=== PATIENT | female | born 1960 | race Caucasian/White ===

== ENCOUNTER 2016-09-04 09:56 | Outpatient (CLI) | payer BC ==
--- NOTE | 2016-09-04 15:03 | DIAGNOSTIC IMAGING REPORT ---
PROCEDURE: MG BILATERAL SCREENING W/CAD INDICATION: Screening, remote family history of breast cancer TECHNIQUE: Standard CC and MLO views bilaterally. Computer aided detection was used. COMPARISON: 05/16/2010, 05/03/2009, 11/11/2007 FINDINGS: Moderately dense fibroglandular tissue is present bilaterally. No developing densities, areas of architectural distortion, or suspicious microcalcifications. IMPRESSION: 1. Stable mammograms without radiographic evidence of malignancy. RESULT CODE: 1- Negative. A. A negative report should not delay biopsy if a dominant or clinically suspicious mass is present. 10-15% of cancers are not identified by x-ray. B. A negative report may reinforce clinical impression. C. Adenosis and dense breasts may obscure an underlying neoplasm. D. False positive reports average 6-10%. E.. A yearly screening mammogram is recommended. A reminder letter will be scheduled.
--- NOTE | 2016-09-04 16:16 | DIAGNOSTIC IMAGING REPORT ---
PROCEDURE: US COMPLETE PELVIC W/TRANSVAG INDICATION: PELVIC PAIN TECHNIQUE: Transabdominal and endovaginal zelaya scale and color Doppler sonographic images of the female pelvis were obtained. COMPARISON: None. FINDINGS: TRANSABDOMINAL SCANS: The uterus is of normal size 6.4 x 3.9 x 4.90 cm Kidneys are normal. TRANSVAGINAL SCANS: The uterus is anteverted. Myometrium is normal. The endometrium contains a solid mass that is vascular. This measures 21 mm. Right ovary is normal measuring 2.1 x 0.8 x 1.9 cm The left ovary is normal measuring 1.8 x 1.2 x 2.0 cm it was a difficult to show blood flow in the ovaries. IMPRESSION: 1. Endometrial mass measuring 21 mm.
== END 2016-09-04 23:00 ==
LOC: US SRH 09:56
DX: N85.8 Other specified noninflammatory disorders of uterus (principal); Z12.31 Encounter for screening mammogram for malignant neoplasm of breast

== ENCOUNTER 2016-09-11 10:19 | Outpatient (CLI) | payer BC | END 2016-09-11 23:00 | disposition home or self-care (01) | LOC: RT SRH 10:19 | DX: R00.2 Palpitations (principal) ==

== ENCOUNTER 2016-10-09 10:25 | Outpatient (CLI) | payer BC ==
--- NOTE | 2016-10-15 19:18 | DIAGNOSTIC IMAGING REPORT ---
REFERRING PHYSICIAN/PROVIDER: [facility] PROVIDER: Mal Christensen MD PROCEDURE: M-mode 2D echocardiography with spectral and color flow Doppler TECHNICAL QUALITY: Fair INDICATION: PALPATATIONS;PVC'S RHYTHM DURING PROCEDURE: Ventricular bigeminy with occasional sinus rhythm INTERPRETATIONS: LEFT VENTRICLE: Normal left ventricular size and systolic function. The estimated ejection fraction is 63%. RIGHT VENTRICLE: Normal right ventricular size and systolic function. ATRIA: Normal biatrial size MITRAL VALVE: The mitral valve leaflets appear normal and there is mild mitral regurgitation noted AORTIC VALVE: The aortic valve is trileaflet with no significant sclerosis noted there is no evidence of aortic stenosis with only trace aortic regurgitation noted. TRICUSPID VALVE: Tricuspid valve leaflets are thin and pliable. There is mild tricuspid regurgitation noted. The estimated right ventricular systolic pressure is 26 mmHg. PULMONIC VALVE: The pulmonic valve appears visually normal. GREAT VESSELS: The great vessels are normal. PERICARDIUM: There is no evidence of a pericardial effusion. IMPRESSION: 1. Normal biventricular size and systolic function 2. Normal biatrial size 3. Mild mitral regurgitation 4. Mild tricuspid regurgitation next normal estimated right ventricular systolic pressure 5. Consider cardiology consultation for burden of PVCs.
== END 2016-10-09 23:00 ==
LOC: US SRH 10:25
DX: R00.2 Palpitations (principal); I49.3 Ventricular premature depolarization